=== PATIENT | male | born 1960 | race African-American/Black ===

== ENCOUNTER 2019-03-16 11:58 | Day surgery (SDC) | payer OTHER ==
[2019-03-16] VITALS (16 sets, daily range): BP systolic 117–144; BP diastolic 70–86; PULSE 71–90; RESP 13–19; Ht 167.6 cm; Wt 75.0 kg
[~2019-03-16] VITALS: Ht 167.6 cm; Wt 75.0 kg
[2019-03-16] MEDS ORDERED: ATOR20TA38 PO (12:27)
[2019-03-16] MEDS ORDERED: IBUP-1544 PO (12:27)
[2019-03-16] MEDS ORDERED: METF-849 ORAL (12:27)
[2019-03-16] MEDS ORDERED: LANT3I SC (12:27)
[2019-03-16] MEDS ORDERED: LATA2.5D2 BOTH EYES (12:27)
[2019-03-16] MEDS ORDERED: TIMO15DR16 OP (12:27)
[2019-03-16] MEDS ORDERED: LISI10TA2 PO (12:27)
--- NOTE | 2019-03-16 15:25 | HPN ---
Date/Time of Note Date/Time of Note DATE: 03/16/19 TIME: 15:25 Interval H&P Admission Note Pt. seen H&P reviewed: No system changes MICHAEL MCPHERSON MD Mar 16, 2019 15:25
--- NOTE | 2019-03-16 15:37 | PREAC ---
Date/Time of Note Date/Time of Note DATE: 03/16/19 TIME: 15:35 Anesthesia Eval and Record Evaluation Time Pre-Procedure Interview DATE: 03/16/19 TIME: 15:35 Age 58 Sex male NPO: 8 hrs Preoperative diagnosis GALLSTONES Planned procedure LAPROSCOPIC CHOLECYSTECTOMY Past Medical History Past Medical History: Includes Cardio: HTN Endo: Diabetes Pulm: COPD (ON hNp but patient denies and cxr clear ) Neuro: Other (glaucoma ) Surgery & Anesthesia Issues No known issue Meds Anticoagulation: No Beta Isaiah within 24 hr: No Reason Beta Isaiah not given: Pt. not on B-Isaiah Reported Medications Insulin Glargine* (Lantus*) 100 Unit/Ml Soln, 20 UNIT SC QHS, #1 VIAL 03/16/19 Atorvastatin Calcium* (Atorvastatin Calcium*) 20 Mg Tablet, 20 MG PO QHS, #30 TAB 03/16/19 Lisinopril* (Lisinopril*) 10 Mg Tablet, 10 MG PO QHS, #30 TAB 03/16/19 Latanoprost (Latanoprost) 2.5 Ml Drops, 1 DROP BOTH EYES QHS, #1 BOTTLE 03/16/19 Timolol Maleate* (Timolol Maleate* Ophth) 0.5%-15ml Opht, 1 DROP OP BID 03/16/19 Ibuprofen* (Ibuprofen*) 800 Mg Tablet, 800 MG PO Q8 PRN for PAIN LEVEL 6-10, TAB 03/16/19 Metformin* (Glucophage*) 500 Mg Tab, 1 TAB ORAL BID 03/16/19 Meds reviewed: Yes Allergies Coded Allergies: No Known Allergy (Unverified , 03/16/19) Allergies Reviewed: Yes Labs/Studies Labs Reviewed: Reviewed by anesthesiologist test: N/A Pre-procedure Exam Last vitals Vital Signs Date Temp Pulse Resp B/P (MAP) Pulse Ox O2 O2 Flow FiO2 Time Delivery Rate 03/16/19 97.0 71 16 117/74 98 Room Air 12:58 (88) Airway: Adequate mouth opening, Adequate thyromental dist Mallampati: Mallampati IV Teeth: Normal Lung: Normal Heart: Normal ASA Physical Status ASA physical status: 3 Emergency: None Pre-operative Attestations Prior to commencing anesthesia and surgery, the patient was re-evaluated, there was verification of: *The patient's identity *The results of appropriate recent lab work and preoperative vital signs *The above evaluation not changing prior to induction *Anesthetic plan, risk benefits, alternative and complications discussed with patient/family; questions answered; patient/family understands, accepts and wis hes to proceed. SANIA PEARCE DO Mar 16, 2019 15:37
[2019-03-16] MEDS ORDERED: MIDAZOLAM 1 MG/ML 2 ML INJ ONE (15:42)
[2019-03-16] MEDS ORDERED: BUPIVACAINE 0.25% (MPF) 30 ML INJ ONE (15:43)
[2019-03-16] MEDS ORDERED: ROPIVACAINE 0.5 % 30 ML VIAL ONE (15:45)
[2019-03-16] MEDS ORDERED: CEFAZOLIN 1 GM INJ ONE (15:58)
[2019-03-16] MEDS ORDERED: ONDANSETRON 4 MG INJ ONE (15:58)
[2019-03-16] MEDS ORDERED: PROPOFOL 20 ML ONE (16:05)
[2019-03-16] MEDS ORDERED: LIDOCAINE 2% (SDV) 5 ML INJ ONE (16:05)
[2019-03-16] MEDS ORDERED: ROCURONIUM 50 MG INJ ONE ×2 (16:05→16:06)
[2019-03-16] MEDS ORDERED: FENTAnyl 50 MCG/ML VIAL ONE (16:16)
[2019-03-16] MEDS ORDERED: LABETALOL HCL 20MG INJ ONE (16:20)
[2019-03-16] MEDS ORDERED: hydrALAzine 20 MG INJ ONE (16:34)
[2019-03-16] MEDS ORDERED: SUGAMMADEX SODIUM 200 MG/2 ML VIAL IV ONE (16:50)
--- NOTE | 2019-03-16 16:50 | OPR ---
Date/Time of Note Date/Time of Note DATE: 03/16/19 TIME: 16:45 Operative Report Procedure Date: Mar 16, 2019 Preoperative Diagnosis Cholelithiasis/chronic cholecystitis Postoperative Diagnosis Cholelithiasis/chronic cholecystitis Operation/Procedure Performed Laparoscopic cholecystectomy Surgeon see signature line Brazer Electronic None Anesthesia Type: general Anesthesiologist: SANIA PEARCE DO Estimated Blood Loss: minimal Transfusion none Specimen Gallbladder Grafts/Implants none Complications none Pt Condition Post Procedure: stable Disposition: PACU Indications The patient is a 58-year-old -[place] male who presented to the office with right upper quadrant abdominal pain. The patient had clinical signs and symptoms of biliary colic and chronic cholecystitis which was confirmed via an ultrasound which showed the presence of gallstones without evidence of acute ch olecystitis. The patient was scheduled for laparoscopic cholecystectomy; possible open as definitive treatment to prevent further sequelae of gallstone disease which include but are not limited to: Gangrenous cholecystitis, choledocholithiasis, gallstone pancreatitis, ascending cholangitis, etc. All risks and benefits of the procedure including but not limited to: Wound infection, excessive bleeding, common bile duct injury, postoperative biliary leak, retained common bile duct stone, injury to intra-abdominal organs, conversion to open procedure, possible need for subsequent surgeries, etc. were all explained to the patient in full detail. He fully understood and wished to proceed with the procedure. Informed consent was therefore obtained. Procedure Description The patient was brought to the operating room and placed supine on the operating table. Bilateral sequential compression devices were placed on both lower extremities. Dose of broad-spectrum perioperative intravenous antibiotics was given. After the induction of smooth general endotracheal anesthesia the patient's abdomen was prepped and draped in the standard surgical fashion. After performance of the surgical timeout a 5 mm incision was made in the inferior umbilicus and a Veress needle was used to access the intra-abdominal cavity atraumatically. Pneumoperitoneum was then obtained and the Veress needle was exchanged for a 5 mm trocar through which a 5 mm laparoscope was placed. Three further working ports were then placed a 12 mm port in the sub-xiphoid region and two 5 mm ports in the right upper quadrant. All port sites were anesthetized with 0.25% Marcaine with epinephrine prior to incision. Using atraumatic graspers the gallbladder was grasped and retracted superiorly and laterally exposing the area of Matt's pouch. Dissection was begun in this area using a combination of blunt dissection and hook electrocautery. The cystic duct was identified as it entered straight into the neck of the gallbladder. Biliary anatomy and the cystic duct were confirmed using fluorescence imaging. Cystic duct was then dissected free of surrounding tissues and clipped proximally and distally x 3 and transected using EndoShears. Dissection was then continued posteriorly. The cystic artery was identified and dissected free of surrounding tissues. It too was clipped proximally and distally x 3 and transected using EndoShears. The gallbladder was then dissected off the liver bed using electrocautery. There was some fibrosis and chronic scarring of the posterior aspect of the gallbladder to the liver bed. Once completely free the gallbladder was placed in an Endo Catch bag and withdrawn through the subxiphoid port site and passed off the field as specimen. Hemostasis was then inspected for and noted to be total. The fascia of the subxiphoid port site was then reapproximated using a hardy-close device. Pneumoperitoneum was then released and all remaining trochars were withdrawn under direct vision. The subcutaneous tissues were irrigated with warm normal saline. The skin was then reapproximated using 4-0 Monocryl sutures in subcuticular fashion. The incisions were cleaned and Dermabond was applied to the incisions and the patient was awoken from anesthesia and transported to the recovery room in stable condition. A tap block was performed at the conclusion of the procedure by the anesthesiologist and will be documented separately by him. All counts were correct at the end of the case x 2. MICHAEL MCPHERSON MD Mar 16, 2019 16:50
[2019-03-16] MEDS ORDERED: ONDANSETRON 4 MG INJ IV PRN ×2 (17:00→17:30)
[2019-03-16] MEDS ORDERED: IBUPROFEN 600 MG TAB PO PRN (17:00)
[2019-03-16] MEDS ORDERED: HYDROCODONE/APAP (5/325) TAB PO PRN ×2 (17:00)
[2019-03-16] MEDS ORDERED: morphine 2 MG INJ IV PRN (17:00)
[2019-03-16] MEDS ORDERED: MEPERIDINE 25 MG INJ ONE (17:25)
--- NOTE | 2019-03-16 17:26 | PAC ---
Date/Time of Note Date/Time of Note DATE: 03/16/19 TIME: 17:26 Post-Anesthesia Notes Post-Anesthesia Note Last documented vital signs Vital Signs Date Temp Pulse Resp B/P (MAP) Pulse Ox O2 O2 Flow FiO2 Time Delivery Rate 03/16/19 97.0 71 16 117/74 98 Room Air 12:58 (88) Activity: WNL Respiratory function: WNL Cardiovascular function: WNL Mental status: Baseline Pain reasonably controlled: Yes Hydration appropriate: Yes Nausea/Vomiting absent: Yes SANIA PEARCE DO Mar 16, 2019 17:26
[2019-03-16] MEDS ORDERED: MEPERIDINE 25 MG INJ IV PRN (17:30)
[2019-03-16] MEDS ORDERED: HYDROmorphONE 1 MG/5 ML IV SYRINGE IV PRN (17:30)
[2019-03-16] MEDS ORDERED: FENTAnyl 50 MCG/ML VIAL IV PRN ×2 (17:30)
[2019-03-16] MEDS ORDERED: DIPHENHYDRAMINE 50 MG INJ IV PRN (17:30)
[2019-03-16] MEDS: HYDROmorphONE 1 MG/5 ML IV SYRINGE IV PRN ×2 (17:36→17:52)
== END 2019-03-16 19:00 | disposition home or self-care (01) ==
LOC: SDS 11:58
PROVIDERS: ATTEND Surgery
DX: K80.10 Calculus of gallbladder with chronic cholecystitis without obstruction (principal)
CPT/HCPCS: 47562; 82962; 88304; J0360; J0690; J1170; J2175; J2250; J2270; J2405; J2795; J3010; Z7512; Z7610